=== PATIENT | female | born 1985 | race Caucasian/White ===

== ENCOUNTER 2016-07-05 00:53 | Inpatient (IN) | payer OTHER ==
[2016-07-05] MEDS ORDERED: Bupivacaine 0.25% 10 ML SDV ONE (01:00)
[2016-07-05] MEDS ORDERED: Nalbuphine 20 MG/1 ML Amp IVPUSH PRN (01:12)
[2016-07-05] MEDS ORDERED: Ondansetron 4 MG/2 ML SDV IVPUSH PRN ×2 (01:12→02:04)
[2016-07-05] MEDS ORDERED: Lidocaine 1% 50 ML MDV INJECT ONE (01:12)
[2016-07-05] MEDS ORDERED: Sodium Chloride 0.9% 10 ML Syringe FLUSH PRN (01:12)
[2016-07-05] MEDS ORDERED: Oxytocin/Lactated Ringers 10 UNIT/1,000 ML BAG IV SCH (01:15)
[2016-07-05] MEDS ORDERED: Lactated Ringers 1,000 ML ONE (01:17)
--- NOTE | 2016-07-05 01:50 | PCM.LDHP ---
L&D History of Present Illness - General Date of Service: 07/05/16 Admit Problem/Dx: Patient Status Order with Admit Dx/Problem 07/05/16 01:12 Patient Status [ADT] Routine Patient Status: Admit to Inpatient Admission Diagnosis/Problem: Reason for Admit: Labor Nurse Unit Type: Labor and Delivery Admitting Physician: Alessandra Zhang Attending Physician: Alessandra Zhang Medicare 96 Hour Certification Statement: This Patient is Admitted for Inpatient Services and is Medically Appropriate and Meets Medical Necessity for Inpatient Admission. I Reasonably Expect the Patient Will Require Inpatient Services That Span a Period of Time Over 2 Midnights. My Rationale for Medically Necessary Inpatient Care Will Be Found in the Admission History & Physical and Progress Notes. I Reasonably Expect the Patient to be Discharged or Transferred Within 96 Hours After Admission to This [facility]. Admission Diagnosis/Problem Admission Diagnosis/Problem Source of Information: Patient, RN notes reviewed - History of Present Illness Introduction:: Patient is a 30 y/o at 38 4/7 wks gestation who presents in labor. Contractions started this PM. Overall doing well. No other concerns. 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 , : 3 Para: 1 LMP (Approximate): - Past Surgical History HEENT Surgical History: Reports: Oral surgery (tooth extraction) Female Surgical History: Reports: Other (see below) (ectopic procedure) Social & Family History - Tobacco Use Smoking Status *Q: Never Smoker Second Hand Smoke Exposure: No - Alcohol Use Alcohol Use History: No Days Per Week of Alcohol Use: 0 - Recreational Drug Use Recreational Drug Use: No H&P Review of Systems - Review of Systems: Review Of Systems: See Below General: Reports: no symptoms Pulmonary: Reports: No Symptoms Cardiovascular: Reports: no symptoms Gastrointestinal: Reports: No symptoms Genitourinary: Reports: no symptoms Musculoskeletal: Reports: no symptoms Psychiatric: Reports: no symptoms L&D Exam - Exam Exam: See Below - Vital Signs Weight: 91.172 kg - OB Specific Contraction Intensity: Strong movement: active heart tones: present heart tones per min: 130 Heart Rate (FHR) Variability: Moderate (6-25 bmp) Presentation: Vertex - Silva Score Silva Score Cervix Position: Anterior Silva Score Consistency: Soft Silva Score Effacement: >80% Silva Score Dilation: > 5 cm Silva Score 's Station: -1 ,0 Silva Score Total: 12 - Exam General: alert, oriented, cooperative Lungs: Clear to auscultation, Normal respiratory effort Cardiovascular: regular rate, regular rhythm Abdomen: soft Genitourinary: Normal external exam Back Exam: normal inspection Extremities: normal inspection Skin: warm, dry, intact - Patient Data Lab Results last 24 hrs: Laboratory Results - last 24 hr 07/05/16 Range/Units 01:25 WBC 10.17 H (3.98-10.04) K/mm3 RBC 4.12 (3.98-5.22) M/mm3 Hgb 12.6 (11.2-15.7) gm/L Hct 37.8 (34.1-44.9) % MCV 91.7 (79.4-94.8) fl MCH 30.6 (25.6-32.2) pg MCHC 33.3 (32.2-35.5) g/dl RDW Std Deviation 45.1 (36.4-46.3) fL Plt Count 144 L (182-369) K/mm3 MPV 10.3 (9.4-12.3) fl Neut % (Auto) 60.9 (34.0-71.1) % Lymph % (Auto) 26.6 (19.3-51.7) % [place] % (Auto) 11.2 (4.7-12.5) % Eos % (Auto) 0.8 (0.7-5.8) Baso % (Auto) 0.2 (0.1-1.2) % Neut # (Auto) 6.19 H (1.56-6.13) K/mm3 Lymph # (Auto) 2.71 (1.18-3.74) K/mm3 [place] # (Auto) 1.14 H (0.24-0.36) K/mm3 Eos # (Auto) 0.08 (0.04-0.36) K/mm3 Baso # (Auto) 0.02 (0.01-0.08) K/mm3 Result Diagrams: 07/05/16 01:25 - Problem List (1) 38 weeks gestation of SNOMED Code(s): 40235377 ICD Code: Z3A.38 - 38 WEEKS GESTATION OF Status: Acute Current Visit: Yes (2) Choroid plexus cyst of fetus SNOMED Code(s): 464614489 ICD Code: O35.0XX0 - MATERNAL CARE FOR (SUSPECTED) CNSL MALFORM IN FETUS, UNSP Status: Acute Current Visit: Yes Qualifiers: Fetus number: single or unspecified fetus Qualified Code(s): O35.0XX0 - Maternal care for (suspected) central nervous system malformation in fetus, not applicable or unspecified (3) Normal labor SNOMED Code(s): 26102855 ICD Code: O80 - ENCOUNTER FOR FULL-TERM UNCOMPLICATED DELIVERY; Z37.9 - OUTCOME OF DELIVERY, UNSPECIFIED Status: Acute Current Visit: Yes Problem List Initiated/Reviewed/Updated: Yes Orders Last 24hrs: Active Orders 24 hr Category Date Time Status Patient Status [ADT] Routine ADT 07/05/16 01:12 Active Activity as Tolerated [RC] PFP Care 07/05/16 01:12 Active Communication Order [RC] ASDIRECTED Care 07/05/16 01:12 Active Heart Tones [RC] ASDIRECTED Care 07/05/16 01:13 Active Notify Provider [RC] PFP Care 07/05/16 01:12 Active Notify Provider [RC] PRN Care 07/05/16 01:12 Active Peripheral IV Care [RC] . DIRECTED Care 07/05/16 01:13 Active Pump Management, Intrathecal [RC] ASDIRECTED Care 07/05/16 01:13 Active Vital Signs [RC] PER UNIT ROUTINE Care 07/05/16 01:12 Active Lactated Ringers [Ringers, Lactated] 1,000 ml Med 07/05/16 01:15 Active IV ASDIRECTED Nalbuphine [Nubain] Med 07/05/16 01:12 Active 10 mg IVPUSH Q2H PRN Ondansetron [Zofran] Med 07/05/16 01:12 Active 4 mg IVPUSH Q4H PRN Oxytocin/Lactated Ringers [Pitocin in LR 10 Units/1,000 Med 07/05/16 01:15 Active ML] 10 unit in 1,000 ml IV TITRATE Sodium Chloride 0.9% [Saline Flush] Med 07/05/16 01:12 Active 10 ml FLUSH ASDIRECTED PRN Electronic Heart Tones Ext w TOCO [WOMSER] Oth 07/05/16 01:12 Ordered Routine Electronic Heart Tones Internal [WOMSER] Per Unit Oth 07/05/16 01:12 Ordered Routine Peripheral IV Insertion Adult [OM.PC] Routine Oth 07/05/16 01:12 Ordered Resuscitation Status Routine Resus Stat 07/05/16 01:12 Ordered Medication Orders Lactated Ringer's (Ringers, Lactated) 1,000 mls @ 100 mls/hr IV ASDIRECTED LINDA Oxytocin/Lactated Ringer's (Pitocin In Lr 10 Units/1,000 Ml) 10 unit in 1,000 mls @ 500 mls/hr IV TITRATE LINDA Nalbuphine HCl (Nubain) 10 mg IVPUSH Q2H PRN PRN Reason: Pain (moderate 4-6) Ondansetron HCl (Zofran) 4 mg IVPUSH Q4H PRN PRN Reason: Nausea/Vomiting Sodium Chloride (Saline Flush) 10 ml FLUSH ASDIRECTED PRN PRN Reason: Keep Vein Open Assessment/Plan Comment:: 30 y/o at 38 4/7 wks admitted for labor * CBC and T&S * GBS negative, no need for antibiotics * Pain control per patient preference * Anticipate
[2016-07-05] MEDS: Lactated Ringers 1,000 ML IV SCH ×2 (01:58→02:34)
[2016-07-05] MEDS ORDERED: ePHEDrine 50 MG/ML SDV IVPUSH PRN (02:04)
[2016-07-05] MEDS ORDERED: fentaNYL 100 MCG/2 ML SDV EPIDUR PRN (02:04)
[2016-07-05] MEDS ORDERED: Bupivacaine/fentaNYL/NS 100 ML Bag EPIDUR SCH (02:15)
--- NOTE | 2016-07-05 02:29 | PCM.PREANE ---
Preanesthetic Assessment - Physical Assessment Respiratory Rate: 20 Vital Signs: Last Vital Signs Temp 36.3 C 07/05/16 01:12 Pulse 80 07/05/16 01:12 Resp 20 07/05/16 01:12 BP 120/79 07/05/16 01:12 Pulse Ox Height: 1.7 m Weight: 91.172 kg - Lab Values: Laboratory Last Values WBC 10.17 K/mm3 (3.98-10.04) H 07/05/16 01:25 RBC 4.12 M/mm3 (3.98-5.22) 07/05/16 01:25 Hgb 12.6 gm/L (11.2-15.7) 07/05/16 01:25 Hct 37.8 % (34.1-44.9) 07/05/16 01:25 MCV 91.7 fl (79.4-94.8) 07/05/16 01:25 MCH 30.6 pg (25.6-32.2) 07/05/16 01:25 MCHC 33.3 g/dl (32.2-35.5) 07/05/16 01:25 RDW Std Deviation 45.1 fL (36.4-46.3) 07/05/16 01:25 Plt Count 144 K/mm3 (182-369) L 07/05/16 01:25 MPV 10.3 fl (9.4-12.3) 07/05/16 01:25 Neut % (Auto) 60.9 % (34.0-71.1) 07/05/16 01:25 Lymph % (Auto) 26.6 % (19.3-51.7) 07/05/16 01:25 [place] % (Auto) 11.2 % (4.7-12.5) 07/05/16 01:25 Eos % (Auto) 0.8 (0.7-5.8) 07/05/16 01:25 Baso % (Auto) 0.2 % (0.1-1.2) 07/05/16 01:25 Neut # (Auto) 6.19 K/mm3 (1.56-6.13) H 07/05/16 01:25 Lymph # (Auto) 2.71 K/mm3 (1.18-3.74) 07/05/16 01:25 [place] # (Auto) 1.14 K/mm3 (0.24-0.36) H 07/05/16 01:25 Eos # (Auto) 0.08 K/mm3 (0.04-0.36) 07/05/16 01:25 Baso # (Auto) 0.02 K/mm3 (0.01-0.08) 07/05/16 01:25 - Allergies Allergies/Adverse Reactions: Allergies Allergy/AdvReac Type Severity Reaction Status Date / Time acetaminophen Allergy Vomiting Verified 12/19/15 10:51 [From Tylenol-Codeine] azithromycin [From Zithromax] Allergy Vomiting Verified 12/19/15 10:51 codeine phosphate Allergy Vomiting Verified 12/19/15 10:51 [From Tylenol-Codeine] 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 , - Past Surgical History HEENT Surgical History: Reports: Oral surgery (tooth extraction) Female Surgical History: Reports: Other (see below) (ectopic procedure) - SUBSTANCE USE Smoking Status *Q: Never Smoker Second Hand Smoke Exposure: No Days Per Week of Alcohol Use: 0 Recreational Drug Use History: No - HOME MEDS Home Medications: Home Meds Vits #93/Iron Fum/FA [ Formula Tablet] 1 each PO DAILY [History] - CURRENT (IN HOUSE) MEDS Current Meds: Current Medications Ephedrine Sulfate (Ephedrine Sulfate) 5 mg IVPUSH ASDIRECTED PRN PRN Reason: Hypotension Fentanyl (Sublimaze) 100 mcg EPIDUR Q3H PRN PRN Reason: Pain Fentanyl/Bupivacaine HCl (Fentanyl/Bupivacaine/Ns 2 Mcg-0.125% 100 Ml) 100 ml EPIDUR ASDIRECTED LINDA Lactated Ringer's (Ringers, Lactated) 1,000 mls @ 100 mls/hr IV ASDIRECTED LINDA Last Admin: 07/05/16 01:58 Dose: 999 mls/hr Oxytocin/Lactated Ringer's (Pitocin In Lr 10 Units/1,000 Ml) 10 unit in 1,000 mls @ 500 mls/hr IV TITRATE LINDA Nalbuphine HCl (Nubain) 10 mg IVPUSH Q2H PRN PRN Reason: Pain (moderate 4-6) Last Admin: 07/05/16 01:58 Dose: 5 mg Ondansetron HCl (Zofran) 4 mg IVPUSH Q4H PRN PRN Reason: Nausea/Vomiting Ondansetron HCl (Zofran) 4 mg IVPUSH ONETIME PRN PRN Reason: Nausea/Vomiting Sodium Chloride (Saline Flush) 10 ml FLUSH ASDIRECTED PRN PRN Reason: Keep Vein Open Discontinued Medications Lactated Ringer's (Ringers, Lactated) Confirm Administered Dose 1,000 mls @ as directed .ROUTE .STK-MED ONE Stop: 07/05/16 01:18 Last Admin: 07/05/16 01:59 Dose: Not Given Lidocaine HCl (Xylocaine 1%) 20 ml INJECT ONETIME ONE Stop: 07/05/16 01:13 Preanesthetic Assessment - ANESTHESIA/TRANSFUSION/FAMILY HX Anesthesia/Transfusion History: No Prior Transfusion(s), Prior Anesthesia (no prob) Type of Anesthesia Reaction: Denies: Allergy, Anesthesia Awareness, Excessive Somnolence, Excessive Nausea/Vomiting, Excessive Itching, Excessive Shivering, Malignant Hyperthermia, Malignant Hyperthermia, Family History, Pseudocholinesterase Deficiency, Pseudocholinesterase Deficiency, Family History of, Urinary Retention, Unknown, Other (see below) Family History of Anesthesia Reaction: No Intubation History: Unknown - REVIEW OF SYSTEMS Constitutional: Reports: no symptoms SECRETARY RECEPTIONIST: Reports: no symptoms Respiratory: Reports: no symptoms Cardiovascular: Reports: no symptoms GI: Reports: no symptoms Other: Reports: None - PHYSICAL ASSESSMENT HR: 80 O2 Sat by Pulse Oximetry: 99 RR: 20 BP: 120/79 Temp: 36.3 C Vital Signs: Last Vital Signs Temp 36.3 C 07/05/16 01:12 Pulse 80 07/05/16 01:12 Resp 20 07/05/16 01:12 BP 120/79 07/05/16 01:12 Pulse Ox Height: 1.7 m Weight: 91.172 kg NPO Status Date: 07/04/16 NPO Status Time: 19:00 ASA Class: 2 Mental Status: Alert & Oriented x3 Airway Class: Mallampati = 2 Dentition: Reports: Normal Dentition, Caries Thyro-Mental Finger Breadths: 3 Mouth Opening Finger Breadths: 3 ROM/Head Extension: Full Respiratory Status: lungs clear to auscultation bilaterally Cardiovascular Status: regular rate & rhythm, normal S1, S2, no murmur, blood pressure WNL - LAB Values: Laboratory Last Values WBC 10.17 K/mm3 (3.98-10.04) H 07/05/16 01:25 RBC 4.12 M/mm3 (3.98-5.22) 07/05/16 01:25 Hgb 12.6 gm/L (11.2-15.7) 07/05/16 01:25 Hct 37.8 % (34.1-44.9) 07/05/16 01:25 MCV 91.7 fl (79.4-94.8) 07/05/16 01:25 MCH 30.6 pg (25.6-32.2) 07/05/16 01:25 MCHC 33.3 g/dl (32.2-35.5) 07/05/16 01:25 RDW Std Deviation 45.1 fL (36.4-46.3) 07/05/16 01:25 Plt Count 144 K/mm3 (182-369) L 07/05/16 01:25 MPV 10.3 fl (9.4-12.3) 07/05/16 01:25 Neut % (Auto) 60.9 % (34.0-71.1) 07/05/16 01:25 Lymph % (Auto) 26.6 % (19.3-51.7) 07/05/16 01:25 [place] % (Auto) 11.2 % (4.7-12.5) 07/05/16 01:25 Eos % (Auto) 0.8 (0.7-5.8) 07/05/16 01:25 Baso % (Auto) 0.2 % (0.1-1.2) 07/05/16 01:25 Neut # (Auto) 6.19 K/mm3 (1.56-6.13) H 07/05/16 01:25 Lymph # (Auto) 2.71 K/mm3 (1.18-3.74) 07/05/16 01:25 [place] # (Auto) 1.14 K/mm3 (0.24-0.36) H 07/05/16 01:25 Eos # (Auto) 0.08 K/mm3 (0.04-0.36) 07/05/16 01:25 Baso # (Auto) 0.02 K/mm3 (0.01-0.08) 07/05/16 01:25 Reviewed and noted. - ALLERGIES Allergies/Adverse Reactions: Allergies Allergy/AdvReac Type Severity Reaction Status Date / Time acetaminophen Allergy Vomiting Verified 12/19/15 10:51 [From Tylenol-Codeine] azithromycin [From Zithromax] Allergy Vomiting Verified 12/19/15 10:51 codeine phosphate Allergy Vomiting Verified 12/19/15 10:51 [From Tylenol-Codeine] - ANESTHESIA PLAN Preop Beta Zeus: No Anesthesia Type Planned: Spinal (laboring spinal) - ACKNOWLEDGEMENTS Pt an Appropriate Candidate for the Planned Anesthesia: Yes Alternatives and Risks of Anesthesia Discussed w Pt/Guardian: Yes Pt/Guardian Understands and Agrees with Anesthesia Plan: Yes
--- NOTE | 2016-07-05 03:43 | PCM.DEL ---
L & D Note - General Info Date of Service: 07/05/16 - Delivery Note Labor: spontaneous Delivery Outcome: Livebirth Delivery Method: Spontaneous Vaginal Delivery Presentation: Right Occiput Anterior (MOMO) Nuchal cord: present (tight, not able to be reduced) Anesthesia Type: Spinal Amniotic Fluid Description: Meconium stained Episiotomy Type: None Laceration: 2nd degree, perineal Suture type: vicryl Suture size: 2-0 Placenta: intact, spontaneous Cord: 3 vessels Estimated blood loss: 400 Resuscitation needed: Yes : bulb syringe, stimulated, warmed, blanket used, warmer used Score 1 min: 8 Score 5 min: 9 Delivery Comments (Free Text/Narrative):: Patient found to be complete and began pushing. With maternal pushing effort head delivered from an MOMO presentation. Tight nuchal cord which could not be reduced. With gentle downward traction the shoulders and body delivered. Cord clamped and cut. Baby handed to awaiting gas welder. Cord blood obtained. Placenta allowed time to separate and spontaneously expelled. Inspection of the perineum showed a 2nd degree laceration which was repaired with a 2-0 vicryl in the typical fashion. - Patient Data Vitals - most recent: Last Vital Signs Temp 36.3 C 07/05/16 02:29 Pulse 80 07/05/16 02:29 Resp 20 07/05/16 02:29 BP 120/79 07/05/16 02:29 Pulse Ox 99 07/05/16 02:29 Weight - most recent: 91.172 kg Lab Results last 24 hrs: Laboratory Results - last 24 hr 07/05/16 Range/Units 01:25 WBC 10.17 H (3.98-10.04) K/mm3 RBC 4.12 (3.98-5.22) M/mm3 Hgb 12.6 (11.2-15.7) gm/L Hct 37.8 (34.1-44.9) % MCV 91.7 (79.4-94.8) fl MCH 30.6 (25.6-32.2) pg MCHC 33.3 (32.2-35.5) g/dl RDW Std Deviation 45.1 (36.4-46.3) fL Plt Count 144 L (182-369) K/mm3 MPV 10.3 (9.4-12.3) fl Neut % (Auto) 60.9 (34.0-71.1) % Lymph % (Auto) 26.6 (19.3-51.7) % [place] % (Auto) 11.2 (4.7-12.5) % Eos % (Auto) 0.8 (0.7-5.8) Baso % (Auto) 0.2 (0.1-1.2) % Neut # (Auto) 6.19 H (1.56-6.13) K/mm3 Lymph # (Auto) 2.71 (1.18-3.74) K/mm3 [place] # (Auto) 1.14 H (0.24-0.36) K/mm3 Eos # (Auto) 0.08 (0.04-0.36) K/mm3 Baso # (Auto) 0.02 (0.01-0.08) K/mm3 Med Orders - Current: Current Medications Ephedrine Sulfate (Ephedrine Sulfate) 5 mg IVPUSH ASDIRECTED PRN PRN Reason: Hypotension Fentanyl (Sublimaze) 100 mcg EPIDUR Q3H PRN PRN Reason: Pain Fentanyl/Bupivacaine HCl (Fentanyl/Bupivacaine/Ns 2 Mcg-0.125% 100 Ml) 100 ml EPIDUR ASDIRECTED LINDA Lactated Ringer's (Ringers, Lactated) 1,000 mls @ 100 mls/hr IV ASDIRECTED LINDA Last Admin: 07/05/16 02:34 Dose: 100 mls/hr Oxytocin/Lactated Ringer's (Pitocin In Lr 10 Units/1,000 Ml) 10 unit in 1,000 mls @ 500 mls/hr IV TITRATE LINDA Nalbuphine HCl (Nubain) 10 mg IVPUSH Q2H PRN PRN Reason: Pain (moderate 4-6) Last Admin: 07/05/16 01:58 Dose: 5 mg Ondansetron HCl (Zofran) 4 mg IVPUSH Q4H PRN PRN Reason: Nausea/Vomiting Ondansetron HCl (Zofran) 4 mg IVPUSH ONETIME PRN PRN Reason: Nausea/Vomiting Sodium Chloride (Saline Flush) 10 ml FLUSH ASDIRECTED PRN PRN Reason: Keep Vein Open Discontinued Medications Lactated Ringer's (Ringers, Lactated) Confirm Administered Dose 1,000 mls @ as directed .ROUTE .STK-MED ONE Stop: 07/05/16 01:18 Last Admin: 07/05/16 01:59 Dose: Not Given Lidocaine HCl (Xylocaine 1%) 20 ml INJECT ONETIME ONE Stop: 07/05/16 01:13 - Problem List & Annotations (1) 38 weeks gestation of SNOMED Code(s): 34746553 Code(s): Z3A.38 - 38 WEEKS GESTATION OF Status: Acute Current Visit: Yes (2) Choroid plexus cyst of fetus SNOMED Code(s): 066557422 Code(s): O35.0XX0 - MATERNAL CARE FOR (SUSPECTED) CNSL MALFORM IN FETUS, UNSP Status: Acute Current Visit: Yes Qualifiers: Fetus number: single or unspecified fetus Qualified Code(s): O35.0XX0 - Maternal care for (suspected) central nervous system malformation in fetus, not applicable or unspecified (3) Normal labor SNOMED Code(s): 67351471 Code(s): O80 - ENCOUNTER FOR FULL-TERM UNCOMPLICATED DELIVERY; Z37.9 - OUTCOME OF DELIVERY, UNSPECIFIED Status: Acute Current Visit: Yes (4) Vaginal delivery SNOMED Code(s): 891328527 Code(s): O80 - ENCOUNTER FOR FULL-TERM UNCOMPLICATED DELIVERY Status: Acute Current Visit: Yes - Problem List Review Problem List Initiated/Reviewed/Updated: Yes - My Orders Last 24 Hours: My Active Orders 07/05/16 01:12 Patient Status [ADT] Routine Activity as Tolerated [RC] PFP Communication Order [RC] ASDIRECTED Notify Provider [RC] PFP Notify Provider [RC] PRN Vital Signs [RC] PER UNIT ROUTINE Nalbuphine [Nubain] 10 mg IVPUSH Q2H PRN Ondansetron [Zofran] 4 mg IVPUSH Q4H PRN Sodium Chloride 0.9% [Saline Flush] 10 ml FLUSH ASDIRECTED PRN Electronic Heart Tones Ext w TOCO [WOMSER] Routine Electronic Heart Tones Internal [WOMSER] Per Unit Routine Peripheral IV Insertion Adult [OM.PC] Routine Resuscitation Status Routine 07/05/16 01:13 Heart Tones [RC] ASDIRECTED Peripheral IV Care [RC] . DIRECTED Pump Management, Intrathecal [RC] ASDIRECTED 07/05/16 01:15 Lactated Ringers [Ringers, Lactated] 1,000 ml IV ASDIRECTED Oxytocin/Lactated Ringers [Pitocin in LR 10 Units/1,000 ML] 10 unit in 1,000 ml IV TITRATE - Assessment Assessment:: 30 y/o G3 now P2012 PPD#0 from at 38 4/7 wks - Plan Plan:: * Routine cares * Encourage breast feeding * Discharge home in 1-2 days
[2016-07-05] MEDS ORDERED: Docusate Sodium 100 MG Cap PO PRN (04:51)
[2016-07-05] MEDS ORDERED: Benzocaine/Menthol 20%-0.5% Spray 56 GM Canister TOP PRN (04:51)
[2016-07-05] MEDS ORDERED: Lanolin 100% Cream 7 GM Tube TOP PRN (04:51)
[2016-07-05] MEDS ORDERED: Acetaminophen 325 MG Tab PO PRN (04:51)
[2016-07-05] MEDS ORDERED: Witch Hazel Medicated Pads 100/Jar TOP PRN (04:51)
[2016-07-05] MEDS: Ibuprofen 600 MG Tab PO PRN ×3 (05:37→18:42)
--- NOTE | 2016-07-06 07:11 | PCM.PNPP ---
- General Info Date of Service: 07/06/16 Functional Status: Reports: pain controlled, tolerating diet, ambulating, urinating - Review of Systems General: Reports: No Symptoms Pulmonary: Reports: no symptoms Cardiovascular: Reports: No Symptoms Gastrointestinal: Reports: No symptoms Genitourinary: Reports: no symptoms Musculoskeletal: Reports: no symptoms - Patient Data Vital Signs - most recent: Last Vital Signs Temp 36.9 C 07/06/16 05:51 Pulse 70 07/06/16 05:51 Resp 16 07/06/16 05:51 BP 112/55 L 07/06/16 05:51 Pulse Ox 97 07/06/16 05:51 Weight - most recent: 91.172 kg Med Orders - Current: Current Medications Acetaminophen (Tylenol) 650 mg PO Q4H PRN PRN Reason: mild pain or fever Benzocaine/Menthol (Dermoplast Pain Relief [place]) 0 gm TOP ASDIRECTED PRN PRN Reason: Perineal Comfort Measure Last Admin: 07/05/16 05:37 Dose: 1 can Docusate Sodium (Colace) 100 mg PO BID PRN PRN Reason: Constipation Last Admin: 07/05/16 09:53 Dose: 100 mg Emollient Ointment (Lansinoh Hpa) 0 gm TOP ASDIRECTED PRN PRN Reason: Sore Nipples Last Admin: 07/05/16 09:53 Dose: 1 applic Ibuprofen (Motrin) 600 mg PO Q4H PRN PRN Reason: Mild pain or fever Last Admin: 07/05/16 18:42 Dose: 600 mg [place] (Tucks) 1 pad TOP ASDIRECTED PRN PRN Reason: Hemorrhoid pain Last Admin: 07/05/16 05:36 Dose: 1 canister Discontinued Medications Bupivacaine HCl (Sensorcaine-Mpf 0.25%) 10 ml .ROUTE .STK-MED ONE Stop: 07/05/16 01:01 Ephedrine Sulfate (Ephedrine Sulfate) 5 mg IVPUSH ASDIRECTED PRN PRN Reason: Hypotension Fentanyl (Sublimaze) 100 mcg EPIDUR Q3H PRN PRN Reason: Pain Fentanyl/Bupivacaine HCl (Fentanyl/Bupivacaine/Ns 2 Mcg-0.125% 100 Ml) 100 ml EPIDUR ASDIRECTED LINDA Lactated Ringer's (Ringers, Lactated) 1,000 mls @ 100 mls/hr IV ASDIRECTED LINDA Last Admin: 07/05/16 02:34 Dose: 100 mls/hr Oxytocin/Lactated Ringer's (Pitocin In Lr 10 Units/1,000 Ml) 10 unit in 1,000 mls @ 500 mls/hr IV TITRATE LINDA Last Admin: 07/05/16 05:10 Dose: 500 mls/hr Lactated Ringer's (Ringers, Lactated) Confirm Administered Dose 1,000 mls @ as directed .ROUTE .STK-MED ONE Stop: 07/05/16 01:18 Last Admin: 07/05/16 01:59 Dose: Not Given Lidocaine HCl (Xylocaine 1%) 20 ml INJECT ONETIME ONE Stop: 07/05/16 01:13 Last Admin: 07/05/16 05:11 Dose: Not Given Nalbuphine HCl (Nubain) 10 mg IVPUSH Q2H PRN PRN Reason: Pain (moderate 4-6) Last Admin: 07/05/16 01:58 Dose: 5 mg Ondansetron HCl (Zofran) 4 mg IVPUSH Q4H PRN PRN Reason: Nausea/Vomiting Ondansetron HCl (Zofran) 4 mg IVPUSH ONETIME PRN PRN Reason: Nausea/Vomiting Sodium Chloride (Saline Flush) 10 ml FLUSH ASDIRECTED PRN PRN Reason: Keep Vein Open - Infant Interaction Disposition, : in Room with Family Interaction: Holding Infant Infant Feeding: Breastfed ; Nursed Well Support Person: - Recovery Exam Fundal Tone: Firm Fundal Level: At Umbilicus Fundal Placement: Midline Lochia Amount: Small Lochia Color: Rubra/Red Episiotomy/Laceration: Approximated Bladder Status: Voiding Urinary Elimination: Voided - Exam General: alert, oriented, cooperative Abdomen: soft, no tenderness Extremities: no edema Skin: warm, dry, intact - Problem List & Annotations (1) 38 weeks gestation of SNOMED Code(s): 13164323 Code(s): Z3A.38 - 38 WEEKS GESTATION OF Status: Acute Current Visit: Yes (2) Choroid plexus cyst of fetus SNOMED Code(s): 524170421 Code(s): O35.0XX0 - MATERNAL CARE FOR (SUSPECTED) CNSL MALFORM IN FETUS, UNSP Status: Acute Current Visit: Yes Qualifiers: Fetus number: single or unspecified fetus Qualified Code(s): O35.0XX0 - Maternal care for (suspected) central nervous system malformation in fetus, not applicable or unspecified (3) Normal labor SNOMED Code(s): 87489725 Code(s): O80 - ENCOUNTER FOR FULL-TERM UNCOMPLICATED DELIVERY; Z37.9 - OUTCOME OF DELIVERY, UNSPECIFIED Status: Acute Current Visit: Yes (4) Vaginal delivery SNOMED Code(s): 068905431 Code(s): O80 - ENCOUNTER FOR FULL-TERM UNCOMPLICATED DELIVERY Status: Acute Current Visit: Yes - Problem List Review Problem List Initiated/Reviewed/Updated: Yes - My Orders Last 24 Hours: My Active Orders 07/05/16 Breakfast Regular Diet [DIET] 07/06/16 04:51 Heat Therapy [OM.PC] PRN - Assessment Assessment:: 30 y/o G3 now P2012 PPD#1 from at 38 4/7 wks - Plan Plan:: * Routine cares * Encourage breast feeding * Discharge home today
--- NOTE | 2016-07-06 07:11 | PCM.DCSUM1 ---
Discharge Summary - Discharge Data Discharge Date: 07/06/16 Discharge Disposition: Home, Self-Care 01 Condition: Good - Discharge Diagnosis/Problem(s) (1) 38 weeks gestation of SNOMED Code(s): 60169923 ICD Code: Z3A.38 - 38 WEEKS GESTATION OF Status: Acute Current Visit: Yes (2) Choroid plexus cyst of fetus SNOMED Code(s): 165688806 ICD Code: O35.0XX0 - MATERNAL CARE FOR (SUSPECTED) CNSL MALFORM IN FETUS, UNSP Status: Acute Current Visit: Yes Qualifiers: Fetus number: single or unspecified fetus Qualified Code(s): O35.0XX0 - Maternal care for (suspected) central nervous system malformation in fetus, not applicable or unspecified (3) Normal labor SNOMED Code(s): 82676282 ICD Code: O80 - ENCOUNTER FOR FULL-TERM UNCOMPLICATED DELIVERY; Z37.9 - OUTCOME OF DELIVERY, UNSPECIFIED Status: Acute Current Visit: Yes (4) Vaginal delivery SNOMED Code(s): 970451942 ICD Code: O80 - ENCOUNTER FOR FULL-TERM UNCOMPLICATED DELIVERY Status: Acute Current Visit: Yes - Patient Summary/Data Complications: None Consults: None Recommended Follow-up Testing/Procedures: Follow up with Dr. Zhang in 5-6 weeks for check Hospital Course: 30 y/o at 38 4/7 wks presented in labor. She progressed well without the need for augmentation and underwent an uncomplicated . See delivery note. she did well and was discharged home on PPD#1. - Patient Instructions Diet: Regular Diet as Tolerated Activity: As Tolerated Activity, Other: Pelvic Rest for 6 weeks Driving: May Drive Today Showering/Bathing: May Shower Showering/Bathing, Other: May Bathe Notify Provider of: Fever, Increased Pain, Swelling and Redness, Drainage, Nausea and/or Vomiting - Discharge Plan Home Medications: Home Meds Ibuprofen [IJD: Ibuprofen] 600 mg PO Q4H PRN #0 tablet 07/05/16 [Rx] Vits #93/Iron Fum/FA [ Formula Tablet] 1 each PO DAILY [History] Referrals: Alessandra Zhang MD [Primary Care Provider] - (5-6 weeks for post check ) - Discharge Summary/Plan Comment DC Time >30 min.: No - Patient Data Vitals - Most Recent: Last Vital Signs Temp 36.9 C 07/06/16 05:51 Pulse 70 07/06/16 05:51 Resp 16 07/06/16 05:51 BP 112/55 L 07/06/16 05:51 Pulse Ox 97 07/06/16 05:51 Weight - Most Recent: 91.172 kg Med Orders - Current: Current Medications Acetaminophen (Tylenol) 650 mg PO Q4H PRN PRN Reason: mild pain or fever Benzocaine/Menthol (Dermoplast Pain Relief [place]) 0 gm TOP ASDIRECTED PRN PRN Reason: Perineal Comfort Measure Last Admin: 07/05/16 05:37 Dose: 1 can Docusate Sodium (Colace) 100 mg PO BID PRN PRN Reason: Constipation Last Admin: 07/05/16 09:53 Dose: 100 mg Emollient Ointment (Lansinoh Hpa) 0 gm TOP ASDIRECTED PRN PRN Reason: Sore Nipples Last Admin: 07/05/16 09:53 Dose: 1 applic Ibuprofen (Motrin) 600 mg PO Q4H PRN PRN Reason: Mild pain or fever Last Admin: 07/05/16 18:42 Dose: 600 mg Witch [place] (Tucks) 1 pad TOP ASDIRECTED PRN PRN Reason: Hemorrhoid pain Last Admin: 07/05/16 05:36 Dose: 1 canister Discontinued Medications Bupivacaine HCl (Sensorcaine-Mpf 0.25%) 10 ml .ROUTE .STK-MED ONE Stop: 07/05/16 01:01 Ephedrine Sulfate (Ephedrine Sulfate) 5 mg IVPUSH ASDIRECTED PRN PRN Reason: Hypotension Fentanyl (Sublimaze) 100 mcg EPIDUR Q3H PRN PRN Reason: Pain Fentanyl/Bupivacaine HCl (Fentanyl/Bupivacaine/Ns 2 Mcg-0.125% 100 Ml) 100 ml EPIDUR ASDIRECTED LINDA Lactated Ringer's (Ringers, Lactated) 1,000 mls @ 100 mls/hr IV ASDIRECTED LINDA Last Admin: 07/05/16 02:34 Dose: 100 mls/hr Oxytocin/Lactated Ringer's (Pitocin In Lr 10 Units/1,000 Ml) 10 unit in 1,000 mls @ 500 mls/hr IV TITRATE LINDA Last Admin: 07/05/16 05:10 Dose: 500 mls/hr Lactated Ringer's (Ringers, Lactated) Confirm Administered Dose 1,000 mls @ as directed .ROUTE .STK-MED ONE Stop: 07/05/16 01:18 Last Admin: 07/05/16 01:59 Dose: Not Given Lidocaine HCl (Xylocaine 1%) 20 ml INJECT ONETIME ONE Stop: 07/05/16 01:13 Last Admin: 07/05/16 05:11 Dose: Not Given Nalbuphine HCl (Nubain) 10 mg IVPUSH Q2H PRN PRN Reason: Pain (moderate 4-6) Last Admin: 07/05/16 01:58 Dose: 5 mg Ondansetron HCl (Zofran) 4 mg IVPUSH Q4H PRN PRN Reason: Nausea/Vomiting Ondansetron HCl (Zofran) 4 mg IVPUSH ONETIME PRN PRN Reason: Nausea/Vomiting Sodium Chloride (Saline Flush) 10 ml FLUSH ASDIRECTED PRN PRN Reason: Keep Vein Open *Q Meaningful Use (DIS) - VTE *Q VTE Criteria *Q: - Stroke *Q Stroke Criteria *Q: - AMI *Q AMI Criteria *Q:
--- NOTE | 2016-07-06 07:31 | PCM48HPAN ---
Post Anesthesia Note - EVALUATION WITHIN 48HRS OF ANESTHETIC Vital Signs in Normal Range: Yes Patient Participated in Evaluation: Yes Respiratory Function Stable: Yes Airway Patent: Yes Cardiovascular Function Stable: Yes Hydration Status Stable: Yes Pain Control Satisfactory: Yes Nausea and Vomiting Control Satisfactory: Yes Mental Status Recovered: Yes
[2016-07-06 14:07] VITALS: BP 103/52
== END 2016-07-06 13:19 | disposition home or self-care (01) | DRG 775 ==
LOC: JD.OBCHECK 00:53 → JD.OB 00:57 → JD.OBCHECK 01:12 → JD.OB 01:12 → JD.MS 03:09 → JD.OB 10:58
PROVIDERS: ADMIT Obstetrics & Gynecology; ATTEND Obstetrics & Gynecology
PROC: 10E0XZZ Delivery of Products of Conception, External Approach (ICD-10-PCS; principal; 2016-07-05)
PROC: 0KQM0ZZ Repair Perineum Muscle, Open Approach (ICD-10-PCS; 2016-07-05)
PROC: 00HU33Z Insertion of Infusion Device into Spinal Canal, Percutaneous Approach (ICD-10-PCS; 2016-07-05)
PROC: 3E0R3CZ (ICD-10-PCS; 2016-07-05)
DX: O70.1 Second degree perineal laceration during delivery (principal); Z37.0 Single live birth; O77.0 Labor and delivery complicated by meconium in amniotic fluid; O69.81X0 Labor and delivery complicated by cord around neck, without compression, not applicable or unspecified; Z3A.39 39 weeks gestation of pregnancy
CPT/HCPCS: 01967; 36415; 85025; A9270-GY; J2300; J2590; J7120